=== PATIENT | male | born 1980 | race Caucasian/White ===

== ENCOUNTER 2021-02-20 14:25 | Emergency (ER) | payer OTHER, SELFPAY ==
[2021-02-20 14:27] VITALS: BP 145/79; PULSE 74; RESP 16; TEMP 36.1; O2SAT 100; BMI 30.7
--- NOTE | 2021-02-20 15:04 | EDS_ITS ---
HPI HPI - Psych History of Present Illness Chief Complaint: Anxiety Informant: patient Onset/Context/Timing Onset: Today Context: Sudden Onset Current Severity: Mild Maximum Severity: Moderate Associated Symptoms Associated Symptoms - Psych: Negative for Depressed, Change in Eating, Flight of Ideas, Increased activity, Pressured Speech, Agitated, Angry, Hostile, Threatening, Confusion, Paranoia, Visual Hallucinations and Auditory Hallucinations Narrative Narrative: 41-year-old male 3 days ago was started on Lexapro by his primary care physician for anxiety. States that they were driving to his in-laws house near [place] for [employer]. Today around 130 he started having significant anxiety. Feeling of doom. Said he got nauseated and dizzy. He kept feeling more panic. He said at times he felt like he was shaking. Would kind of come and go. He denied chest pain. He denies any headache or abdominal pain. Says never had a panic attack before but he believes that this is 1 of years. Is actually feeling better now but still is pretty anxious. Prior similar symptoms: No Recent Illness/Hospitalization: No PFSH PFS Medical History Anxiety Asthma Home Medications escitalopram oxalate [Lexapro] mg 02/20/21 [History Last Taken Unknown] lorazepam [Ativan] 1 mg PO DAILY PRN #7 tab 02/20/21 [Rx Last Taken Unknown] Allergy/AdvReac Type Severity Reaction Status Date / Time No Known Allergies Allergy Verified 02/20/21 14:30 Social History Smoking Status: Never smoker ROS ROS ED ROS Narrative Denies recent illness. Review of Systems ROS Unobtainable: Denies due to encephalopathy Constitutional Constitutional ED: Denies chills or fever(s) Eyes Eyes: Denies change in vision ENT ENT ED: Denies ear pain Cardiovascular Cardiovascular: Denies chest pain Respiratory/Chest Respiratory/Chest: Denies dyspnea Gastrointestinal Gastrointestinal: Denies abdominal pain Genitourinary Genitourinary ED: Denies dysuria Musculoskeletal Musculoskeletal: Denies myalgias Integumentary Denies rash Neurologic Neurologic: Denies headache(s) Psychiatric Psychiatric: Denies depression Endocrine Endocrinology: Denies polyuria Hematologic/Lymphatic Hematologic/Lymphatic: Denies easy bruising Allergic/Immunologic Allergic/Immunologic ED: Denies urticaria EXAM Physical Exam Narrative Exam Narrative: Middle-age male no acute distress vital signs stable afebrile. Initial blood pressure 145/79 currently is 138/75. Pulse is 100%. He does not look septic or toxic. Actually now he is in a much better state of mind. Still a little anxious but he is much improved. H EENT exam unremarkable. Pupils round reactive light no facial droop. Normal speech. Neck nontender. Lungs clear to auscultation bilaterally. Heart regular rhythm rate about 75 no murmur. Chest wall nontender. Abdomen soft nontender. All 4 extremities. Neurovascular intact. Normal strength and sensation. No edema. Back nontender. Neurologically is awake alert with no focal motor or sensory deficits. NIH is 0. Emotionally is anxious. Const Vital Signs: 02/20/21 14:27 Temperature 97 F L Temperature Source Temporal Pulse Rate 74 Respiratory Rate 16 Blood Pressure 145/79 H Blood Pressure Mean 101 Pulse Ox 100 Oxygen Delivery Method Room Air Positive well nourished and well developed; Negative for obese, cachectic, contractures or unkempt General Appearance ED: well developed and NAD; Negative for unkempt, cachectic, contractures or pallor Nutritional Appearance: Negative for cachectic or obese HEENT Reports moist mucous membranes normocephalic and atraumatic Eyes PERRL and EOMs intact bilaterally Neck no lymphadenopathy, supple and no JVD General: Negative for tenderness Resp normal respiratory effort and clear to auscultation bilaterally Auscultation: Negative for rales, rhonchi or wheezes Cardio S1 normal heart sound, S2 normal heart sound and no murmurs Rate: regular rate Rhythm: regular rhythm GI non-tender, non-distended and no masses Inspection: Negative for abdominal distention Auscultation: normoactive bowel sounds Palpation: soft; Negative for tender or guarding Back/Spine no CVA tenderness General Back: Negative for CVA tenderness Cervical Spine: Negative for cervical spine tenderness Thoracic Spine / Upper Back: Negative for thoracic spinal tenderness Lumbar Spine / Lower Back: Negative for lumbar spinal tenderness Extremity normal to inspection General Extremety ED: Negative for tenderness Neuro oriented x3, CN's II-XII intact bilaterally and no sensory deficits noted Sensorium / Orientation: alert, oriented to person, oriented to place and oriented to time; Negative for orientation impaired, confused, lethargic or stuporous Motor Exam: strength 5/5 throughout; Negative for general weakness Psych mental status grossly normal, thought process normal, cooperative, affect normal, speech normal and activity/motor behavior normal; Negative for denies hallucinations, denies homicidal ideation or denies suicidal ideation Psych Narrative: Mildly anxious. Appearance: Negative for unkempt Skin General Skin Exam: Negative for jaundice or pallor Lesions: no lesions Rashes: no rashes MDM MDM MDM Narrative Medical decision making narrative: 41-year-old with a panic attack. Exam otherwise is normal. His vital signs are normal currently. Be given 1 p.o. Ativan. He will be given a very small prescription for Ativan as needed #5 with no refill. I discussed with both the patient and his . Discharge Plan Triage Chief Complaint: Anxiety ED Provider: Pierre Farnsworth Dx/Rx/DC Orders Clinical Impression: Panic attack, History of anxiety Instructions: ED Panic Attack Prescriptions: New lorazepam [Ativan] 1 mg tablet 1 mg PO DAILY PRN (Reason: anxiety) Qty: 7 RF: 0 No Action escitalopram oxalate [Lexapro] 5 mg Tablet RF: 0 Activity Restrictions/Additional Instructions: Plenty of fluids and rest. Continue your Lexapro daily. Short prescription for Ativan as needed as needed. If you have a panic attack use one of the Ativan. They usually work within half an hour to 1 hour. Also consider other things for stress reduction such as exercise, reading, meditation and yoga. Disposition Disposition: Home, Self Care
[2021-02-20 15:08] VITALS: BP 137/68; PULSE 71; RESP 15; O2SAT 98
[2021-02-20] MEDS: LORazepam 1 MG Tablet PO (15:08)
== END 2021-02-20 15:15 | disposition home or self-care (01) ==
PROVIDERS: Emergency Provider Emergency Medicine
DX: F41.0 Panic disorder [episodic paroxysmal anxiety] (principal)
CPT/HCPCS: 99284